=== PATIENT | female | born 1935 | race Caucasian/White ===

== ENCOUNTER 2017-05-23 04:14 | Inpatient (IN) ==
[2017-05-23] MEDS ORDERED: ALBUTEROL 2.5 MG/3 ML NEB RESP TX PRN (04:49)
[2017-05-23] MEDS ORDERED: ONDANSETRON 4 MG/2 ML VIAL IV PRN (06:00)
[2017-05-23 06:01] LABS: Allen Test Positive; Pt O2 Delivery Device Ventilator
[2017-05-23 06:02] LABS: ABG Base Excess -0.4 MMOL/L (-2.5-2.5); ABG HCO3 24.2 MMOL/L (20-26); ABG Oxygen Saturation 99.8 % (95-100); ABG TCO2 29.2 MMOL/L (23-27)
[2017-05-23 06:04] LABS: ABG PCO2 88.8 MM HG (35-48); ABG PH 7.163 (7.35-7.45)
[2017-05-23] MEDS ORDERED: DEXTROSE 50% 25 GM/50 ML VIAL IV PRN (06:19)
[2017-05-23] MEDS ORDERED: GLUCAGON 1 MG VIAL IM PRN (06:19)
[2017-05-23 06:23] LABS: Basophils % 0.3 % (0.0-0.8); Eosinophils % 0.1 % (0.00-10.9); Hematocrit 41.5 VOL% (35.7-47.0); Hemoglobin 12.9 GM/DL (12.0-16.0); Immature Granulocytes % 0.9 %; Immature Granulocytes Absolute 0.09 #; Lymphocytes # 1.1 10*3/uL (1.4-4.0); Lymphocytes % 10.8 % (21.3-54.2); Mean Corpuscular HGB Conc 31.1 GM/DL (32-36); Mean Corpuscular Hemoglobin 32 PG (27-34); Mean Platelet Volume 11.5 FL (9.6-12.0); Monocytes # 0.2 10*3/uL (0.11-0.8); Monocytes % 2.2 % (1.7-12.7); Neutrophils # 8.6 10*3/uL (1.4-7.4); Neutrophils % 85.7 % (38.7-73.9); Platelet Count 217 T/CUMM (130-400); Red Blood Count 4.03 MC/CUMM (3.8-5.5); Red Cell Distribution Width 12.9 % (9.3-17.3)
[2017-05-23] MEDS ORDERED: SODIUM CHLORIDE 0.9% 500 ML IV ONE (06:30)
[2017-05-23 06:36] LABS: INR 0.9; PT Patient Result 9.6 SECS; Partial Thromboplastin Time 26.3 SECS (0-40)
[2017-05-23 06:45] LABS: Anisocytosis Slight; Band Neutrophils 3 % (0-10); Lymphocytes 12 % (20-55); Macrocytosis 3+; Platelet Estimate Normal; Segmented Neutrophils 83 % (50-85); Total Cells Counted 100
[2017-05-23 06:54] LABS: Bilirubin,Total 0.5 MG/DL (0.2-1.0); Calcium 8.6 MG/DL (8.5-10.1)
[2017-05-23 07:01] LABS: Lactic Acid 2.4 MMOL/L (0.4-2.0)
[2017-05-23] MEDS: PANTOPRAZOLE 40 MG VIAL IV SCH (07:24)
[2017-05-23] MEDS: methylPREDNISolone SOD SUC 40 MG/1 ML VIAL IV SCH ×3 (07:24→17:34)
[2017-05-23] MEDS: ALBUTEROL/IPRATROPIUM 3 ML NEB RESP TX SCH ×3 (07:30→19:38)
[2017-05-23] MEDS ORDERED: NOREPINEPHRINE 4 MG/4 ML VIAL IV ONE (07:39)
[2017-05-23] MEDS: NOREPINEPHRINE 8 MG in SODIUM CHLORIDE 0.9% 242 ML IV SCH (07:46)
[2017-05-23] MEDS: SODIUM CHLORIDE 0.9% 1,000 ML IV SCH ×2 (07:47→21:20)
[2017-05-23] MEDS ORDERED: SODIUM BICARBONATE 50 MEQ/50 ML SYRINGE IV ONE ×2 (07:56→08:06)
[2017-05-23] MEDS ORDERED: ALBUTEROL/IPRATROPIUM 3 ML NEB RESP TX ONE (08:08)
[2017-05-23] MEDS ORDERED: SODIUM CHLORIDE 0.9% 1,000 ML IV ONE ×2 (08:08→08:47)
[2017-05-23] MEDS: PIPERACILLIN/TAZOBACTAM 3,375 MG in SODIUM CHLORIDE 0.9% 100 ML IV SCH ×2 (08:26→16:01)
[2017-05-23] MEDS: PROPOFOL 1,000 MG/100 ML BOTTLE IV SCH ×2 (08:26→11:00)
[2017-05-23] MEDS: LEVOFLOXACIN INJ 750 MG in PREMIX 1 EACH IV SCH (08:26)
[2017-05-23] MEDS: ENOXAPARIN 40 MG/0.4 ML SYRINGE SUBCUT SCH (08:26)
[2017-05-23 08:37] LABS: Apearance,Urine Slightly Hazy (Clear); Bacteria,Urine Occasional /HPF (Few); Bilirubin,Urine Negative (Negative); Blood, Urine Small mg/dL (Negative); Glucose,Urine (UA) >=500 mg/dL (Negative); Ketones,Urine Negative (Negative); Mucus,Urine Occasional /LPF (Occasional); Nitrite,Urine Negative (Negative); Protein,Urine >=500 MG/DL; RBC,Urine 2 /HPF (0-4); Squamous Epithelial Cell,Urine Occasional /HPF (0-10); Urine Color Yellow (Yellow); Urine Urobilinogen < 2.0 EU/DL (0.2-1.0); WBC,Urine 2 /HPF (0-6)
[2017-05-23 08:51] LABS: Troponin I Only 0.072 NG/ML (0.00-0.045)
[2017-05-23] MEDS: VANCOMYCIN INJ 1,000 MG in SODIUM CHLORIDE 0.9% 250 ML IV SCH (09:13)
[2017-05-23 09:15] LABS: ABG Base Excess 1.7 MMOL/L (-2.5-2.5); ABG HCO3 25.9 MMOL/L (20-26); ABG Oxygen Saturation 99.9 % (95-100); ABG PCO2 50.5 MM HG (35-48); ABG PH 7.352 (7.35-7.45); ABG TCO2 25.2 MMOL/L (23-27); Allen Test Positive; Pt O2 Delivery Device Ventilator
[2017-05-23] MEDS ORDERED: INSULIN LISPRO 100 UNIT/ML SUBCUT SCH (10:00)
[2017-05-23] MEDS: INSULIN LISPRO 100 UNIT/ML SUBCUT SCH ×3 (12:11→21:20)
[2017-05-23 12:12] LABS: Troponin I Only 0.139 NG/ML (0.00-0.045)
[2017-05-23] MEDS ORDERED: NITROPRUSSIDE 50 MG/2 ML VIAL ONE (12:55)
[2017-05-23 18:30] LABS: Troponin I Only 0.119 NG/ML (0.00-0.045)
[2017-05-24] MEDS: INSULIN LISPRO 100 UNIT/ML SUBCUT SCH ×6 (00:55→20:28)
[2017-05-24] MEDS: methylPREDNISolone SOD SUC 40 MG/1 ML VIAL IV SCH ×5 (00:55→23:29)
[2017-05-24] MEDS: PIPERACILLIN/TAZOBACTAM 3,375 MG in SODIUM CHLORIDE 0.9% 100 ML IV SCH ×4 (00:55→23:29)
[2017-05-24] MEDS: PROPOFOL 1,000 MG/100 ML BOTTLE IV SCH ×4 (00:57→20:29)
[2017-05-24 01:51] LABS: Troponin I Only 0.085 NG/ML (0.00-0.045)
[2017-05-24] MEDS: ALBUTEROL/IPRATROPIUM 3 ML NEB RESP TX SCH ×4 (01:57→19:31)
[2017-05-24 05:10] LABS: ABG Base Excess 4.7 MMOL/L (-2.5-2.5); ABG HCO3 28.7 MMOL/L (20-26); ABG Oxygen Saturation 99.9 % (95-100); ABG PCO2 38.3 MM HG (35-48); ABG PH 7.479 (7.35-7.45); ABG TCO2 25.6 MMOL/L (23-27)
[2017-05-24] MEDS: PANTOPRAZOLE 40 MG VIAL IV SCH (06:33)
[2017-05-24] MEDS: SODIUM CHLORIDE 0.9% 1,000 ML IV SCH (06:34)
[2017-05-24] MEDS ORDERED: ALBUTEROL/IPRATROPIUM 3 ML NEB RESP TX SCH (07:00)
[2017-05-24] MEDS: NOREPINEPHRINE 8 MG in SODIUM CHLORIDE 0.9% 242 ML IV SCH (07:55)
[2017-05-24] MEDS: ENOXAPARIN 40 MG/0.4 ML SYRINGE SUBCUT SCH (08:00)
[2017-05-24] MEDS: LEVOFLOXACIN INJ 750 MG in PREMIX 1 EACH IV SCH (08:00)
[2017-05-24 08:22] LABS: Basophils % 0.2 % (0.0-0.8); Hematocrit 30.9 VOL% (35.7-47.0); Hemoglobin 10.2 GM/DL (12.0-16.0); Immature Granulocytes % 0.6 %; Immature Granulocytes Absolute 0.07 #; Lymphocytes % 8.5 % (21.3-54.2); Mean Corpuscular Hemoglobin 32 PG (27-34); Mean Corpuscular Volume 95.7 FL (87-102); Monocytes # 0.6 10*3/uL (0.11-0.8); Neutrophils # 10.4 10*3/uL (1.4-7.4); Neutrophils % 85.7 % (38.7-73.9); Platelet Count 217 T/CUMM (130-400); Red Blood Count 3.23 MC/CUMM (3.8-5.5); White Blood Count 12.1 T/CUMM (4-12)
[2017-05-24] MEDS ORDERED: DEXTROSE 50% 25 GM/50 ML VIAL IV PRN (08:44)
[2017-05-24] MEDS ORDERED: GLUCAGON 1 MG VIAL IM PRN (08:44)
[2017-05-24 08:48] LABS: Calcium 8.4 MG/DL (8.5-10.1)
[2017-05-24 08:51] LABS: Potassium 2.5 MMOL/L (3.5-5.1)
[2017-05-24] MEDS: VANCOMYCIN INJ 1,000 MG in SODIUM CHLORIDE 0.9% 250 ML IV SCH (09:11)
[2017-05-24] MEDS: POTASSIUM CHLORIDE 20 MEQ/15 ML UDCUP PER TUBE PRN ×7 (09:32→20:28)
[2017-05-24] MEDS: MULTIVITAMIN LIQUID (CENTRUM) 60 ML BOTTLE PO SCH (09:32)
[2017-05-24 12:25] LABS: Apearance,Urine Slightly Hazy (Clear); Bilirubin,Urine Negative (Negative); Blood, Urine Negative (Negative); Glucose,Urine (UA) Negative (Negative); Ketones,Urine Negative (Negative); Mucus,Urine Occasional /LPF (Occasional); Nitrite,Urine Negative (Negative); Protein,Urine 100 MG/DL; RBC,Urine 3 /HPF (0-4); Squamous Epithelial Cell,Urine Occasional /HPF (0-10); Urine Color Yellow (Yellow); Urine Specific Gravity 1.029 (1.001-1.035); Urine Urobilinogen < 2.0 EU/DL (0.2-1.0); WBC,Urine 2 /HPF (0-6)
[2017-05-24 13:08] LABS: Hypochromasia Slight
[2017-05-24 14:45] LABS: Calcium 8.4 MG/DL (8.5-10.1); Osmolality,Calculated 302.4 MOS/KG (273-304); Potassium 2.8 MMOL/L (3.5-5.1)
[2017-05-24] MEDS: POTASSIUM CHLORIDE INJ 40 MEQ in SODIUM CHLORIDE 0.45% 1,000 ML IV SCH (17:05)
[2017-05-24] MEDS: ATORVASTATIN 20 MG TABLET PO SCH (20:28)
[2017-05-25] MEDS: ALBUTEROL/IPRATROPIUM 3 ML NEB RESP TX SCH ×4 (00:50→18:58)
[2017-05-25] MEDS: INSULIN LISPRO 100 UNIT/ML SUBCUT SCH ×6 (00:50→20:45)
[2017-05-25] MEDS: PROPOFOL 1,000 MG/100 ML BOTTLE IV SCH ×5 (01:20→22:35)
[2017-05-25] MEDS: POTASSIUM CHLORIDE INJ 40 MEQ in SODIUM CHLORIDE 0.45% 1,000 ML IV SCH (03:55)
[2017-05-25 04:53] LABS: ABG Base Excess 1.6 MMOL/L (-2.5-2.5); ABG HCO3 25.8 MMOL/L (20-26); ABG Oxygen Saturation 99.4 % (95-100); ABG PCO2 36.8 MM HG (35-48); ABG PH 7.446 (7.35-7.45); ABG TCO2 21.8 MMOL/L (23-27)
[2017-05-25] MEDS: PANTOPRAZOLE 40 MG VIAL IV SCH (06:24)
[2017-05-25] MEDS: methylPREDNISolone SOD SUC 40 MG/1 ML VIAL IV SCH ×3 (06:24→17:44)
[2017-05-25 06:42] LABS: Basophils % 0.1 % (0.0-0.8); Hematocrit 30.2 VOL% (35.7-47.0); Hemoglobin 10.1 GM/DL (12.0-16.0); Immature Granulocytes % 1.1 %; Immature Granulocytes Absolute 0.16 #; Lymphocytes # 0.7 10*3/uL (1.4-4.0); Lymphocytes % 4.6 % (21.3-54.2); Mean Corpuscular HGB Conc 33.4 GM/DL (32-36); Mean Corpuscular Hemoglobin 32 PG (27-34); Mean Corpuscular Volume 94.4 FL (87-102); Mean Platelet Volume 11.8 FL (9.6-12.0); Monocytes # 0.6 10*3/uL (0.11-0.8); Monocytes % 3.7 % (1.7-12.7); Neutrophils # 13.6 10*3/uL (1.4-7.4); Neutrophils % 90.5 % (38.7-73.9); Platelet Count 237 T/CUMM (130-400); Red Cell Distribution Width 13.5 % (9.3-17.3); White Blood Count 15.1 T/CUMM (4-12)
[2017-05-25 07:20] LABS: Calcium 8.7 MG/DL (8.5-10.1); Potassium 4.8 MMOL/L (3.5-5.1)
[2017-05-25 07:27] LABS: Band Neutrophils 8 % (0-10); Hypochromasia 1+; Lymphocytes 5 % (20-55); Platelet Estimate Adequate; Segmented Neutrophils 84 % (50-85); Total Cells Counted 100
[2017-05-25] MEDS: PIPERACILLIN/TAZOBACTAM 3,375 MG in SODIUM CHLORIDE 0.9% 100 ML IV SCH ×2 (07:36→15:23)
[2017-05-25] MEDS: ENOXAPARIN 40 MG/0.4 ML SYRINGE SUBCUT SCH (07:36)
[2017-05-25] MEDS: NOREPINEPHRINE 8 MG in SODIUM CHLORIDE 0.9% 242 ML IV SCH (07:37)
[2017-05-25] MEDS: LEVOFLOXACIN INJ 750 MG in PREMIX 1 EACH IV SCH (07:37)
[2017-05-25] MEDS: SODIUM CHLORIDE 0.45% 1,000 ML IV SCH (08:04)
[2017-05-25] MEDS: VANCOMYCIN INJ 1,000 MG in SODIUM CHLORIDE 0.9% 250 ML IV SCH (08:21)
[2017-05-25] MEDS: MULTIVITAMIN LIQUID (CENTRUM) 60 ML BOTTLE PO SCH (08:21)
[2017-05-25] MEDS: ASPIRIN CHEW 81 MG TABLET PO SCH (08:21)
[2017-05-25] MEDS: INSULIN GLARGINE 100 UNIT/ML SUBCUT SCH (20:45)
[2017-05-25] MEDS: ATORVASTATIN 20 MG TABLET PO SCH (20:45)
[2017-05-26] MEDS: ALBUTEROL/IPRATROPIUM 3 ML NEB RESP TX SCH ×4 (00:19→18:54)
[2017-05-26] MEDS: INSULIN LISPRO 100 UNIT/ML SUBCUT SCH ×7 (00:20→23:49)
[2017-05-26] MEDS: PIPERACILLIN/TAZOBACTAM 3,375 MG in SODIUM CHLORIDE 0.9% 100 ML IV SCH ×3 (00:20→17:36)
[2017-05-26] MEDS: methylPREDNISolone SOD SUC 40 MG/1 ML VIAL IV SCH ×5 (00:21→23:50)
[2017-05-26] MEDS: SODIUM CHLORIDE 0.45% 1,000 ML IV SCH ×2 (04:03→23:48)
[2017-05-26 04:05] LABS: ABG Base Excess 3.7 MMOL/L (-2.5-2.5); ABG HCO3 27.7 MMOL/L (20-26); ABG Oxygen Saturation 98.6 % (95-100); ABG PCO2 38.8 MM HG (35-48); ABG PH 7.461 (7.35-7.45); ABG TCO2 24.7 MMOL/L (23-27); Allen Test Positive; Pt O2 Delivery Device Ventilator
[2017-05-26] MEDS: PROPOFOL 1,000 MG/100 ML BOTTLE IV SCH ×5 (04:11→21:53)
[2017-05-26 06:11] LABS: Calcium 8.7 MG/DL (8.5-10.1); Potassium 4.5 MMOL/L (3.5-5.1)
[2017-05-26 06:15] LABS: Prealbumin 19.5 MG/DL (20-40)
[2017-05-26] MEDS: PANTOPRAZOLE 40 MG VIAL IV SCH (06:39)
[2017-05-26] MEDS: ENOXAPARIN 40 MG/0.4 ML SYRINGE SUBCUT SCH (08:28)
[2017-05-26] MEDS: LEVOFLOXACIN INJ 750 MG in PREMIX 1 EACH IV SCH (08:28)
[2017-05-26] MEDS: MULTIVITAMIN LIQUID (CENTRUM) 60 ML BOTTLE PO SCH (08:29)
[2017-05-26] MEDS: ASPIRIN CHEW 81 MG TABLET PO SCH (08:29)
[2017-05-26] MEDS: NOREPINEPHRINE 8 MG in SODIUM CHLORIDE 0.9% 242 ML IV SCH (08:29)
[2017-05-26] MEDS: VANCOMYCIN INJ 1,000 MG in SODIUM CHLORIDE 0.9% 250 ML IV SCH (14:08)
[2017-05-26] MEDS: INSULIN GLARGINE 100 UNIT/ML SUBCUT SCH (21:27)
[2017-05-26] MEDS: ATORVASTATIN 20 MG TABLET PO SCH (21:27)
[2017-05-27] MEDS: ALBUTEROL/IPRATROPIUM 3 ML NEB RESP TX SCH ×6 (00:37→23:55)
[2017-05-27] MEDS: PROPOFOL 1,000 MG/100 ML BOTTLE IV SCH ×3 (02:36→20:32)
[2017-05-27 03:11] LABS: ABG Base Excess 3.6 MMOL/L (-2.5-2.5); ABG HCO3 27.6 MMOL/L (20-26); ABG Oxygen Saturation 96.9 % (95-100); ABG PCO2 39.9 MM HG (35-48); ABG PO2 84.4 MM HG (80-95); Allen Test Positive; Pt O2 Delivery Device Ventilator
[2017-05-27] MEDS: PIPERACILLIN/TAZOBACTAM 3,375 MG in SODIUM CHLORIDE 0.9% 100 ML IV SCH ×3 (03:56→22:13)
[2017-05-27] MEDS: INSULIN LISPRO 100 UNIT/ML SUBCUT SCH ×5 (03:56→22:13)
[2017-05-27] MEDS: PANTOPRAZOLE 40 MG VIAL IV SCH (05:25)
[2017-05-27] MEDS: methylPREDNISolone SOD SUC 40 MG/1 ML VIAL IV SCH ×3 (05:27→22:14)
[2017-05-27] MEDS: ENOXAPARIN 40 MG/0.4 ML SYRINGE SUBCUT SCH (07:56)
[2017-05-27] MEDS: NOREPINEPHRINE 8 MG in SODIUM CHLORIDE 0.9% 242 ML IV SCH (07:57)
[2017-05-27] MEDS ORDERED: MORPHINE 10 MG/1 ML VIAL IV ONE (10:14)
[2017-05-27] MEDS: MULTIVITAMIN LIQUID (CENTRUM) 60 ML BOTTLE PO SCH (10:49)
[2017-05-27] MEDS: ASPIRIN CHEW 81 MG TABLET PO SCH (10:49)
[2017-05-27] MEDS: THEOPHYLLINE 5.33 MG/ML 30 ML/BOTTLE NG SCH ×3 (10:50→22:12)
[2017-05-27] MEDS: FLUCONAZOLE INJ 100 MG in IV BAG 1 EACH IV SCH (10:51)
[2017-05-27] MEDS: LEVOFLOXACIN INJ 750 MG in PREMIX 1 EACH IV SCH (18:03)
[2017-05-27] MEDS ORDERED: SODIUM CHLORIDE 0.9% 100 ML IV ONE (22:00)
[2017-05-27] MEDS: ATORVASTATIN 20 MG TABLET PO SCH (22:13)
[2017-05-27] MEDS: INSULIN GLARGINE 100 UNIT/ML SUBCUT SCH (22:13)
[2017-05-27] MEDS: SODIUM CHLORIDE 0.45% 1,000 ML IV SCH (22:17)
[2017-05-28] MEDS: PROPOFOL 1,000 MG/100 ML BOTTLE IV SCH ×7 (00:12→23:41)
[2017-05-28] MEDS: INSULIN LISPRO 100 UNIT/ML SUBCUT SCH ×6 (00:12→19:59)
[2017-05-28] MEDS: ALBUTEROL/IPRATROPIUM 3 ML NEB RESP TX SCH ×6 (03:25→23:50)
[2017-05-28 03:29] LABS: ABG Base Excess 5.8 MMOL/L (-2.5-2.5); ABG HCO3 29.6 MMOL/L (20-26); ABG Oxygen Saturation 97.1 % (95-100); ABG PCO2 39.2 MM HG (35-48); ABG PH 7.485 (7.35-7.45); ABG PO2 82.7 MM HG (80-95); ABG TCO2 26.7 MMOL/L (23-27); Allen Test Positive; Pt O2 Delivery Device Ventilator
[2017-05-28] MEDS: PIPERACILLIN/TAZOBACTAM 3,375 MG in SODIUM CHLORIDE 0.9% 100 ML IV SCH ×3 (05:39→20:06)
[2017-05-28] MEDS: PANTOPRAZOLE 40 MG VIAL IV SCH (05:40)
[2017-05-28] MEDS: methylPREDNISolone SOD SUC 40 MG/1 ML VIAL IV SCH ×3 (05:42→21:21)
[2017-05-28 06:03] LABS: Basophils % 0.2 % (0.0-0.8); Hematocrit 30.2 VOL% (35.7-47.0); Hemoglobin 10.8 GM/DL (12.0-16.0); Immature Granulocytes % 4.2 %; Immature Granulocytes Absolute 0.41 #; Lymphocytes # 0.6 10*3/uL (1.4-4.0); Lymphocytes % 5.8 % (21.3-54.2); Mean Corpuscular HGB Conc 35.8 GM/DL (32-36); Mean Corpuscular Hemoglobin 34 PG (27-34); Mean Corpuscular Volume 95.3 FL (87-102); Mean Platelet Volume 11.9 FL (9.6-12.0); Monocytes # 0.4 10*3/uL (0.11-0.8); Monocytes % 4.3 % (1.7-12.7); NRBC # 0.02 10*3/uL; Neutrophils # 8.4 10*3/uL (1.4-7.4); Neutrophils % 85.5 % (38.7-73.9); Platelet Count 223 T/CUMM (130-400); Red Blood Count 3.17 MC/CUMM (3.8-5.5); Red Cell Distribution Width 13.1 % (9.3-17.3); White Blood Count 9.9 T/CUMM (4-12)
[2017-05-28 06:51] LABS: Calcium 7.3 MG/DL (8.5-10.1); Osmolality,Calculated 282.2 MOS/KG (273-304); Potassium 4.2 MMOL/L (3.5-5.1)
[2017-05-28] MEDS: THEOPHYLLINE 5.33 MG/ML 30 ML/BOTTLE NG SCH ×3 (07:26→21:51)
[2017-05-28] MEDS: NOREPINEPHRINE 8 MG in SODIUM CHLORIDE 0.9% 242 ML IV SCH (08:01)
[2017-05-28] MEDS: MULTIVITAMIN LIQUID (CENTRUM) 60 ML BOTTLE PO SCH (08:01)
[2017-05-28] MEDS: ENOXAPARIN 40 MG/0.4 ML SYRINGE SUBCUT SCH (08:01)
[2017-05-28] MEDS: ASPIRIN CHEW 81 MG TABLET PO SCH (08:01)
[2017-05-28] MEDS: FLUCONAZOLE INJ 100 MG in IV BAG 1 EACH IV SCH (08:01)
[2017-05-28] MEDS: SODIUM CHLORIDE 0.45% 1,000 ML IV SCH (19:58)
[2017-05-28] MEDS: INSULIN GLARGINE 100 UNIT/ML SUBCUT SCH (21:21)
[2017-05-28] MEDS: ATORVASTATIN 20 MG TABLET PO SCH (21:21)
[2017-05-29] MEDS: INSULIN LISPRO 100 UNIT/ML SUBCUT SCH ×4 (00:12→12:20)
[2017-05-29] MEDS: PIPERACILLIN/TAZOBACTAM 3,375 MG in SODIUM CHLORIDE 0.9% 100 ML IV SCH ×2 (03:49→12:57)
[2017-05-29 04:11] LABS: ABG Base Excess 6.5 MMOL/L (-2.5-2.5); ABG HCO3 30.3 MMOL/L (20-26); ABG Oxygen Saturation 97.7 % (95-100); ABG PCO2 42.4 MM HG (35-48); ABG PO2 92.6 MM HG (80-95); ABG TCO2 26.8 MMOL/L (23-27); Pt O2 Delivery Device Ventilator
[2017-05-29] MEDS: ALBUTEROL/IPRATROPIUM 3 ML NEB RESP TX SCH ×4 (04:18→14:15)
[2017-05-29] MEDS: PROPOFOL 1,000 MG/100 ML BOTTLE IV SCH ×2 (05:04→10:58)
[2017-05-29] MEDS: PANTOPRAZOLE 40 MG VIAL IV SCH (06:11)
[2017-05-29] MEDS: methylPREDNISolone SOD SUC 40 MG/1 ML VIAL IV SCH ×2 (06:11→15:08)
[2017-05-29] MEDS: THEOPHYLLINE 5.33 MG/ML 30 ML/BOTTLE NG SCH ×2 (06:12→15:08)
[2017-05-29 06:13] LABS: Basophils % 0.2 % (0.0-0.8); Hematocrit 32.1 VOL% (35.7-47.0); Hemoglobin 10.6 GM/DL (12.0-16.0); Immature Granulocytes % 3.1 %; Lymphocytes # 0.8 10*3/uL (1.4-4.0); Lymphocytes % 5.8 % (21.3-54.2); Mean Corpuscular Hemoglobin 32 PG (27-34); Mean Corpuscular Volume 97.6 FL (87-102); Mean Platelet Volume 12.1 FL (9.6-12.0); Monocytes # 0.6 10*3/uL (0.11-0.8); Monocytes % 4.6 % (1.7-12.7); Neutrophils # 11.2 10*3/uL (1.4-7.4); Neutrophils % 86.3 % (38.7-73.9); Platelet Count 209 T/CUMM (130-400); Red Blood Count 3.29 MC/CUMM (3.8-5.5); Red Cell Distribution Width 13.2 % (9.3-17.3)
[2017-05-29] MEDS ORDERED: NOREPINEPHRINE 8 MG in SODIUM CHLORIDE 0.9% 242 ML IV PRN (07:00)
[2017-05-29 07:11] LABS: Calcium 7.8 MG/DL (8.5-10.1); Osmolality,Calculated 288.5 MOS/KG (273-304); Potassium 3.9 MMOL/L (3.5-5.1)
[2017-05-29] MEDS ORDERED: FUROSEMIDE 40 MG/4 ML VIAL IV ONE (07:54)
[2017-05-29] MEDS: MULTIVITAMIN LIQUID (CENTRUM) 60 ML BOTTLE PO SCH (08:14)
[2017-05-29] MEDS: ENOXAPARIN 40 MG/0.4 ML SYRINGE SUBCUT SCH (08:14)
[2017-05-29] MEDS: ASPIRIN CHEW 81 MG TABLET PO SCH (08:14)
[2017-05-29] MEDS: FLUCONAZOLE INJ 100 MG in IV BAG 1 EACH IV SCH (08:22)
[2017-05-29 15:37] VITALS: BP 111/47
== END 2017-05-29 13:55 | DRG 207 ==
LOC: SUATTDRO 05:36 → N.ICU 05:36
PROVIDERS: ADMIT Internal Medicine; ATTEND Internal Medicine